=== PATIENT | female | born 1955 | race Caucasian/White ===

== ENCOUNTER 2021-10-28 11:05 | Emergency (ER) | payer OTHER, SELFPAY ==
[2021-10-28 11:11] VITALS: BP 115/73; PULSE 100; RESP 16; TEMP 36.7; O2SAT 98
--- NOTE | 2021-10-28 11:16 | ED.URI ---
HPI - URI/Sore Throat General Chief Complaint: Upper Respiratory Infection Stated Complaint: cold symptoms Time Seen by Provider: 10/28/21 11:17 Source: patient and RN notes reviewed Mode of arrival: ambulatory Limitations: no limitations History of Present Illness HPI Narrative: 66-year-old female presents with concern for persistent cough, nasal congestion and pressure. Reports symptoms started with fatigue and cold symptoms approximately 5 to 6 days ago, her cough became worse 3 days ago. Reports 2 days in her symptoms she had a Covid test which was negative. Reports she has been taking ibuprofen. Denies other [id number] intervention. MD elicited complaint: cough and sore throat Related Data Home Medications Medication Instructions Recorded Confirmed buspirone mg 10/28/21 escitalopram oxalate mg 10/28/21 pantoprazole PO 10/28/21 thyroid (pork) [[place] Thyroid] 10/28/21 valacyclovir 10/28/21 Allergies Allergy/AdvReac Type Severity Reaction Status Date / Time codeine Allergy Unknown Anaphylactic Verified 04/17/15 14:04 Shock Penicillins Allergy Unknown ITCHY Verified 04/17/15 14:04 Review of Systems Review of Systems: CONSTITUTIONAL: Reports malaise, fatigue. Denies chills, sweats, or fever. EYES: Denies visual changes, redness, or discharge. ENT: Reports rhinorrhea, congestion, sinus pain, scratchy throat. Denies otalgia and sore throat. CARDIOVASCULAR: Denies chest pain, palpitations, or edema. RESPIRATORY: Reports persistent cough. Denies dyspnea. GASTROINTESTINAL: Denies abdominal pain, nausea, vomiting, diarrhea SKIN: Denies rash or itching. MUSCULOSKELETAL: Denies myalgia. NEUROLOGIC: Denies headache. All systems reviewed & are unremarkable except as noted in HPI and below PMFSH Comments At time of signature, agree with nursing past medical, surgical, social and family history. There is no relevant family history pertinent to the presenting complaint Exam Narrative: GENERAL: Well-appearing, well-nourished, and in no acute distress. HEAD: Normocephalic EYES: PERRLA, conjunctivae clear ENT: Nares clear, clear discharge. Mucous membranes moist. TM pearly andrade with dull light reflex bilaterally; no tragal tenderness. Oropharynx not erythematous without lesions. Tonsils not enlarged and without exudate, no drooling, no hoarseness, no trismus, uvula midline. NECK: Supple. No lymphadenopathy CHEST: Clear to auscultation, breath sounds equal. No wheezing, rhonchi, rales, or stridor. No respiratory distress, speaks in full sentences. Cough noted HEART: Regular rate and rhythm. No murmur heard. SKIN: Warm, dry, no rash. NEURO: Alert and oriented x3. PSYCH: Normal mood and affect Course Course Emergency Course: Patient is aware of diagnosis, understands and agrees to treatment plan. Anticipatory guidance given. Patient agrees to follow-up as directed and is aware of reasons to seek care at the emergency department. Portions of this record may have been created with voice recognition software Vital Signs Vital signs: Vital Signs Temperature 98.1 F 10/28/21 11:11 Pulse Rate 100 10/28/21 11:11 Respiratory Rate 16 10/28/21 11:11 Blood Pressure 115/73 10/28/21 11:11 Pulse Oximetry 98 10/28/21 11:11 Temperature 98.1 F 10/28/21 11:11 Pulse Rate 100 10/28/21 11:11 Respiratory Rate 16 10/28/21 11:11 Blood Pressure 115/73 10/28/21 11:11 Pulse Oximetry 98 10/28/21 11:11 Reviewed. MDM - URI/Sore Throat MDM Narrative Medical decision making narrative: Differential diagnosis considered: [place] virus, strep pharyngitis, allergic rhinitis, upper respiratory tract infection, sinusitis, rhinosinusitis, nasopharyngitis. viral pharyngitis, otitis media, otitis externa, pneumonia, bronchitis, viral cough syndrome, viral syndrome, and influenza. Exam findings show no acute concerns or changes; patient is non-toxic appearing and is in no distress. Patient is appropriate for
== END 2021-10-28 11:58 | disposition home or self-care (01) ==
PROVIDERS: Emergency Provider Nurse Practitioner
DX: J06.9 Acute upper respiratory infection, unspecified (principal)
CPT/HCPCS: 87426; 99203; C9803; G0463